=== PATIENT | male | born 1975 | race Caucasian/White ===

== ENCOUNTER 2021-06-17 01:02 | Inpatient (IN) | payer OTHER ==
[2021-06-17] VITALS (15 sets, daily range): BP systolic 118–158; BP diastolic 83–98
[~2021-06-17] VITALS: Ht 195.6 cm; Wt 90.7 kg
[~2021-06-17 01:02] MED LIST: CELEXA 10 MG TA10 M1 PO
[2021-06-17 01:22] LABS: ABSOLUTE BASOPHILS 0.1 thou/uL (0.0-0.2); ABSOLUTE EOSINOPHILS 0.3 thou/uL (0.0-0.7); ABSOLUTE LYMPHOCYTES 2.2 thou/uL (0.8-5.3); ABSOLUTE MONOCYTES 0.7 thou/uL (0.0-1.2); ABSOLUTE NEUTROPHILS 6.6 thou/uL (1.6-8.1); BASOPHILS 1.1 %; EOSINOPHILS 2.9 %; HEMATOCRIT 48.6 % (42.0-52.0); HEMOGLOBIN 16.6 gm/dL (14.0-18.0); LYMPHOCYTES 21.8 %; MCH 31.5 pg (26.0-34.0); MCHC 34.1 g/dL (28.0-37.0); MCV 92.4 fL (80.0-100.0); MONOCYTES 7.3 %; MPV 7.2 fl. (7.2-11.1); NUCLEATED RBCS 0 /100WBC; PLATELET COUNT* 241 thou/uL (150-400); POLYS 66.9 %; RBC 5.26 mil/uL (4.50-6.00); WBC 9.9 thou/uL (4.0-11.0)
[2021-06-17 01:34] LABS: CALCIUM 8.4 mg/dL (8.5-10.1); CREATININE 1.2 mg/dL (0.6-1.3); POTASSIUM 3.7 mmol/L (3.5-5.1)
[2021-06-17 01:36] LABS: PROTIME 10.4 Seconds (9.20-11.50)
[2021-06-17 01:39] LABS: ALBUMIN 3.6 g/dL (3.4-5.0); TOTAL BILIRUBIN 0.6 mg/dL (<0.1-1.0); TOTAL PROTEIN 7.4 g/dL (6.4-8.2)
[2021-06-17] MEDS ORDERED: LIPITOR80 MG PO (01:49)
[2021-06-17] MEDS ORDERED: CHILDREN'S ASPI81 M1 PO (01:49)
[2021-06-17] MEDS ORDERED: CARVEDILOL3.125 MG PO (01:50)
[2021-06-17] MEDS ORDERED: ZETIA10 MG PO (01:50)
[2021-06-17 04:51] LABS: HEMATOCRIT 46.8 % (42.0-52.0); HEMOGLOBIN 16.1 gm/dL (14.0-18.0); MCH 31.8 pg (26.0-34.0); MCHC 34.5 g/dL (28.0-37.0); MCV 92.2 fL (80.0-100.0); MPV 7.1 fl. (7.2-11.1); RBC 5.07 mil/uL (4.50-6.00); RDW-CV 13.9 % (10.5-14.5); WBC 8.8 thou/uL (4.0-11.0)
[2021-06-17 05:19] LABS: ANION GAP 9 mmol/L (7-16); BUN 11 mg/dL (7-18); CALCIUM 8.5 mg/dL (8.5-10.1); CHLORIDE 102 mmol/L (98-107); CHOLESTEROL 234 mg/dL (<200); CO2 25 mmol/L (21-32); GLUCOSE 136 mg/dL (70-99); HDL CHOLESTEROL 34 mg/dL (>40); LDL CHOLESTEROL 127 mg/dL (<100); SODIUM 136 mmol/L (136-145); TC:HDL 6.9 Ratio (Not establshd); TRIGLYCERIDE 368 mg/dL (<150); VLDL 74 mg/dL (<40)
[2021-06-17 05:24] LABS: SERUM ASSESSMENT Moderate Lipemia
--- NOTE | 2021-06-17 10:25 | EKG ---
[place] [address] ELECTROCARDIOGRAM REPORT Name: LEIGH LUKE Room: [address] IN 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 : 1975 Requested By: Brisa Diez Order Number: [id number] MD: Collin Vasquez Measurements Intervals [place] Rate: 92 P: 69 [place]: 171 QRS: -42 QRSD: 84 T: -7 QT: 353 QTc: 437 Interpretive Statements Sinus rhythm Probable left atrial enlargement Inferior infarct, age indeterminate Anterior infarct, acute (LAD) Lateral leads are also involved Baseline wander in lead(s) II,III,aVF No previous ECG available for comparison Electronically Signed On 06-17-2021 10:24:59 CONTENT CHECKER by Collin Vasquez [email or web address] <ELECTRONICALLY SIGNED> By: Collin Vasquez MD, FACC 06/17/21 1024 0058 Collin Vasquez MD, [facility] /EPI
--- NOTE | 2021-06-17 10:26 | EKG ---
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: ELAN : 1975 Requested By: Collin Vasquez Order Number: [id number] Reading MD: Collin Vasquez Measurements Intervals [place] Rate: 85 P: 61 [place]: 173 QRS: -24 QRSD: 98 T: 41 QT: 336 QTc: 400 Interpretive Statements Sinus rhythm Inferior infarct, old Minimal ST elevation, anterior leads Lateral leads are also involved Baseline wander in lead(s) V1 Compared to ECG 06/17/2021 00:58:00 ST segment elevation less prominent Electronically Signed On 06-17-2021 10:26:18 DEBT RECOVERY OFFICER by Collin Vasquez [email or web address] <ELECTRONICALLY SIGNED> By: Collin Vasquez MD, FACC 06/17/21 1026 8 8 Collin Vasquez MD, [facility] /EPI
--- NOTE | 2021-06-17 17:46 | CARD ---
[address] [address] CARDIAC CATH REPORT Name: LEIGH LUKE REHAN Room: [address] IN [facility]#: [id number] Admission: 06/17/21 Attend Phys: Valentino Vaughn MD Discharge: Date of : 73 Report #: [id number] THIS REPORT FOR: cc: FAM - No family physician/PCP FAM - No family physician/PCP Collin Vasquez MD [facility] ~ APPROVED REPORT Study performed: 06/17/2021 01:11:53 Patient Details Patient Status: ED Room #: The patient is a 45 year-old male Event Personnel Collin Vasquez Watch Crystal Molder, Martha Stoll RN RN, Samreen Espinoza INSPECTOR MECHANICAL Scrub, Francisca Omalley RTR Monitor Procedures Performed Art Access - R femoral artery Left Heart Cath w/or w/o Coronaries LAWSON Revasc AMI Total/Sub Single LAD LAWSON Place w/wo Plasty Single RCA Hemostasis w/ Angioseal Indication Abnormal ECG, STEMI (>0 to less than or equal to 6 hours), Chest pain Risk Factors Arterial Hypertension, Hypercholesterolemia, Coronary Artery Disease, Tobacco History () Previous Procedures/Diagnoses Previous PCI Admission/Lab Medications/Medications given during procedure Glycoprotein IllbIlla Inhibitors, Heparin Unfract., Oxygen Nasal cannula 2 l per min, 0.9% Sodium Chloride IV 75 ml per hr, Solumedrol IV 125 mg, Benadryl IV 25 mg, Lidocaine Subcut 12 ml, Heparin IV 3000 units, Aggrastat IV 5.9 ml, Heparin IV 1000 units, 0.9% Sodium Chloride IV 125 ml per hr, Effient PO 60 mg Procedure Narrative The patient was brought emergently to [place] [address] CARDIAC CATH REPORT Name: MARLYARCHANA COREAPhoebe VAN Room: [address] IN [facility]#: [id number] Admission: 06/17/21 Attend Phys: Valentino Vaughn MD Discharge: Date of : 73 Report #: [id number] Laboratory and was prepped and draped in a sterile manner. The right femoral was infiltrated with 2% Lidocaine subcutaneous anesthesia. IV conscious sedation was used throughout procedure with appropriate monitoring and was performed in the presence of a registered nurse who was an independent trained observer other than the physician performing the procedure. A [place] 6 FR sheath was inserted into the right femoral artery. Coronary angiography was performed using coronary diagnostic catheters. The right coronary system was accessed and visualized with a Diagnostic 6 Fr JR 4 catheter. The left coronary system was accessed and visualized with a Diagnostic 6 Fr JL 4 catheter. The left ventricle was accessed and visualized with a Diagnostic 6 Fr Pigtail catheter. Left ventricular/Aortic Valve gradient assessed via catheter pullback. Left ventriculogram was performed in BOO projection. Closure device was deployed with a 6 Fr Angioseal STS 6Fr. The patient tolerated the procedure well and there were no complications associated with the procedure. There was no hematoma. Intraoperative Conscious Sedation Sedation start time: 01:51 Case end Time: 02:38 Fentanyl 50 mcg Versed 4 mg Fluoro Time: 8.5 minutes Dose: DAP 64933 cGycm2 1414 mGy Contrast Type and Amount: Visipaque 170 mL Coronary Angiography The patient's coronary anatomy is right dominant. Diagnostic Cath Left Main 0% stenosis LAD Stent in the mid LAD was distally occluded with thrombus after the second diagonal branch. Circumflex 0% stenosis OM2 large vessel with proximal stent that had 0% restenosis Right Coronary long mid 80% stenosis Left Ventriculography The left ventricular ejection fraction is estimated to be 40-45%. Left ventricular wall motion abnormalities are present. There is no mitral insufficiency. moderate hypokinesis of the distal anteroapical [place] [address] CARDIAC CATH REPORT Name: LEIGH LUKE Room: [address]#: [id number] Admission: 06/17/21 Attend Phys: Valentino Vaughn MD Discharge: Date of : 73 Report #: [id number] The aortic pressure is 89/59 mmHg with a mean of 73 mmHg. The left ventricular pressure is 97/10 mmHg with a mean of mmHg. The left ventricular end diastolic pressure is 12 mmHg. There was no gradient across the aortic valve upon pullback. Pullback from the left ventricle to the aorta revealed no gradient across the aortic valve. PCI Technique Lesion Anticoagulation was achieved with Heparin. bolus of IV aggrastat given Percutaneous coronary intervention was performed on the mid left anterior descending artery segment. The lesion stenosis prior to intervention was 100% with JAMAR 0 flow. A XBLAD 3.5 Guide Catheter was used to engage the left main ostium. A IG: BMW 190cm Interventional Guidewire was used to cross the lesion. BALLOON DILATION A Balloon catheter Trek RX 2.5 X 8 was inserted and inflated up to 10.00atm for 13seconds. Repeat angiography revealed the following post-dilatation results: 40% stenosis. Additional Inflation: 14.00atm for 12seconds. STENT DEPLOYMENT A drug-eluting stent Aldo RX Stent 3.0X18mm was inserted and inflated up to 9.00atm for 14seconds. Repeat angiography revealed the following post-stent deployment results: 0% stenosis. Additional Inflation: 10.00atm for 19seconds. Final angiography reveals 0 % stenosis with JAMAR 3 flow. PCI Technique Lesion 2 Percutaneous Coronary Intervention was performed on the mid right coronary artery. Percutaneous coronary intervention was performed on the mid right coronary artery. The lesion stenosis prior to intervention was 80% with JAMAR 3 flow. A 6F JR 4.0 Guide Catheter was used to engage the right ostium. A IG: BMW 190cm Interventional Guidewire was used to cross the lesion. Balloon Dilation A Balloon catheter Trek RX 2.5 X 8 was inserted and inflated up to 18.00atm for 17seconds. Repeat angiography revealed the following post-dilatation results: 40% stenosis. Stent Deployment A drug-eluting stent Aldo RX Stent 3.5X34mm was inserted and inflated up to 10.00atm for 9seconds. [place] [address] CARDIAC CATH REPORT Name: LEIGH LUKE Room: [address] IN [facility].#: [id number] Admission: 06/17/21 Attend Phys: Valentino Vaughn MD Discharge: Date of : 73 Report #: [id number] following post-stent deployment results: 0% stenosis. Additional Inflation: 10.00atm for 5seconds. Additional Inflation: 12.00atm for 17seconds. 80% stenosis was noted at the distal edge of the stent suggesting dissection. Final angiography reveals 0 % stenosis with JAMAR 2 flow. PCI Technique Lesion 3 Percutaneous Coronary Intervention was performed on the distal right coronary artery. Percutaneous coronary intervention was performed on the distal right coronary artery. The lesion stenosis prior to intervention was 80% with JAMAR 3 flow. A 6F JR 4.0 Guide Catheter was used to engage the right ostium. A IG: BMW 190cm Interventional Guidewire was used to cross the lesion. Stent Deployment A drug-eluting stent Aldo RX Stent 3.0X12mm was inserted and inflated up to 10.00atm for 9seconds. Repeat angiography revealed the following post-stent deployment results: 0% stenosis. Additional Inflation: 16.00atm for 17seconds. Final angiography reveals 0 % stenosis with JAMAR 3 flow. Conclusion 1. Acute occlusion of a stent in the mid LAD. 2. Patent stent in the second marginal branch of the circumflex. 3. 80% stenosis of the mid RCA. 4. Successful placement of a drug eluting stent in the mid LAD, and placement of 2 drug eluting stents in the mid RCA 5. LVEF 40-45% Recommendations Smoking Cessation Medications Administered Prasugrel <ELECTRONICALLY SIGNED> By: Collin Vasquez MD, [facility] 06/17/211745 45 1746Danoé Vasquez MD, FACC /INF
[2021-06-18 00:21] VITALS: BP 122/86
[2021-06-18 04:40] VITALS: BP 129/80
[2021-06-18 08:30] VITALS: BP 119/91
[2021-06-18 12:00] VITALS: BP 111/80
[2021-06-18] MEDS ORDERED: LISINOPRIL5 MG PO (13:15)
[2021-06-18] MEDS ORDERED: EFFIENT10 MG PO (13:15)
[2021-06-18 14:25] VITALS: BP 111/80
--- NOTE | 2021-06-18 15:47 | EKG ---
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 : 1975 Requested By: Collin Vasquez Order Number: [id number] Reading MD: Collin Vasquez Measurements Intervals [place] Rate: 73 P: 61 [place]: 151 QRS: 14 QRSD: 94 T: 112 QT: 426 QTc: 470 Interpretive Statements Sinus rhythm Probable left atrial enlargement Probable inferior infarct, old Anteroseptal infarct, age indeterminate Compared to ECG 06/17/2021 03:49:06 T wave inversion now noted Myocardial infarct finding still present Electronically Signed On 06-18-2021 15:47:27 VARNISH MELTER by Collin Vaqsuez [email or web address] <ELECTRONICALLY SIGNED> By: Collin Vasquez MD, FACC 06/18/21 1547 1457 1457 Collin Vasquez MD, FAC /EPI
[2021-06-18 23:06] LABS: GLYCOHEMOGLOBIN (HGB A1C) 6.2 % (4.8-5.6)
--- NOTE | 2021-06-20 14:10 | CON ---
[address] [address] CONSULTATION Name: LEIGH LUKE REHAN Room: [address] IN [facility].#: [id number] Admission: 06/17/21 Attend Phys: Valentino Vaughn MD Discharge: 06/18/21 Date of : 73 Report #: [id number] THIS REPORT FOR: cc: FAM - No family physician/PCP FAM - No family physician/PCP Collin Vasquez MD [facility] ~ DATE OF CONSULTATION: 06/17/2021 HISTORY OF PRESENT ILLNESS: The patient is a 45-year-old single white male who I was asked to see in the Emergency Room today after he complained of chest pain. Unfortunately, no old records available. There are no family members available. The patient states, however, that in 2015, he was short of breath. He was admitted to [facility] and had a cardiac catheterization from the right femoral artery. Clerk Of Court decided that he needed to have a stent. Therefore, he was taken back to the cardiac catheterization lab the next day and had a stent placed in his LAD from the left femoral artery. He was discharged and about a year later was again short of breath and he was admitted to . He had a heart catheterization. Apparently, the stent in the LAD looked widely patent. He had a stent placed in the circumflex artery. He does note that about 3 months ago, he was again admitted to [facility] with shortness of breath and had another cardiac catheterization from the radial artery and was told his stents were widely patent. Recently, however, the patient has had intermittent chest pain, shortness of breath. It tends to come and go. Last night, he awakened about 2:00 in the morning with chest pain, became short of breath, diaphoretic. It lasted about an hour. He took nitroglycerin that seemed to help. He finally called the paramedics and brought here to [place] by ambulance and arrived here about 3:00 in the morning and continued to have the chest pain. I was asked to see him on emergent basis. He denies any recent dyspnea on exertion, fever or bleeding. The pain was not related to food. He has had no palpitation or syncope. PAST MEDICAL HISTORY: He has history of hypertension, hyperlipidemia. He has had lung surgery in the past at [facility] for benign disease. MEDICATIONS: Include aspirin, Lipitor, lisinopril, carvedilol, although he notes that he does not take his meds on a regular basis and not every day. ALLERGIES: HE HAS PREVIOUS INTOLERANCE TO PENICILLIN AND IV CONTRAST. FAMILY HISTORY: His father had bypass surgery. SOCIAL HISTORY: He is , lives by himself in [place]. 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 Smokes 2 packs of cigarettes a day. He has a history of alcohol abuse. Used to drink heavily every day. Now drinks just a few drinks every day. No [place] [address] CONSULTATION Name: LEIGH LUKE REHAN Room: [address]#: [id number] Admission: 06/17/21 Attend Phys: Valentino Vaughn MD Discharge: 06/18/21 Date of : 73 Report #: [id number] REVIEW OF SYSTEMS: No history of stroke or asthma, although he does have a chronic cough. No history of liver disease, kidney disease, cancer or chronic skin condition. He had a history of depression in the past and was on Prozac in the past. PHYSICAL EXAMINATION: GENERAL: Revealed a middle-aged male, appeared in moderate distress secondary to the chest pain. VITAL SIGNS: He had a blood pressure of 140/90, pulse is 90. He was afebrile. HEENT: He was anicteric. Conjunctivae pink. Mucous membranes moist. NECK: Veins not appear distended. No carotid bruits. Neck is supple. CHEST: Clear to auscultation. CARDIAC: Regular rate and rhythm without murmur. ABDOMEN: Soft. EXTREMITIES: Had no edema. Posterior tibial pulse 2+ bilaterally. SKIN: Cool and dry. NEUROLOGIC: Nonfocal. IMAGING DATA: His ECG on admission showed a sinus rhythm. There was up to [address] segment elevation in lead V2, V3, V4, reciprocal ST segment depression in lead III and aVF. There is also ST segment elevation in lead I and aVL. He had a chest x-ray in the Emergency Room last night that showed normal heart size, clear lung rosas. LABORATORY DATA: Sodium 136, potassium 4.0, creatinine 1.0, glucose 130. His high sensitivity troponin was 37. Cholesterol 234, triglycerides 368, HDL 34, LDL 127. His white blood cell count 8.8, hemoglobin 16.1. COVID antigen stat test was negative. IMPRESSION AND RECOMMENDATIONS: 1. Coronary artery disease. Previous stents. The patient does not take aspirin every day. 2. Acute anterior ST-elevation myocardial infarction. Recommend urgent cardiac catheterization. 3. Hypertension. The patient is noncompliant on his angiotensin-converting enzyme inhibitor, beta-tessy. 4. Hyperlipidemia. The patient is noncompliant with his statin drug. Because of elevated triglycerides, I would consider Vascepa. 5. Tobacco abuse. 6. History of excessive alcohol intake. 7. Chronic bronchitis. 8. History of depression. [address] [address] CONSULTATION Name: LEIGH LUKE Room: [address] IN .R.#: [id number] Admission: 06/17/21 Attend Phys: Valentino Vaughn MD Discharge: 06/18/21 Date of : 73 Report #: [id number] Critical care time was from 1:45 a.m. until 3:00 a.m. for a total of 1 hour and 15 minutes. <ELECTRONICALLY SIGNED> By: Collin Vasquez MD, FACC 06/20/21 1410 0738 [id number] Vasquez MD, FACC /nt
== END 2021-06-18 16:20 | disposition home or self-care (01) | DRG 246 ==
LOC: M.ERS 01:02 → M.CL 01:29 → M.TBA-CV 01:29 → M.2W 03:57
PROVIDERS: Emergency Medicine; Internal Medicine Cardiovascular Disease; ADMIT Internal Medicine; ATTEND Internal Medicine
PROC: B215YZZ Fluoroscopy of Left Heart using Other Contrast (ICD-10-PCS; principal; 2021-06-17)
PROC: 4A023N7 Measurement of Cardiac Sampling and Pressure, Left Heart, Percutaneous Approach (ICD-10-PCS; principal; 2021-06-17)
PROC: 3E03317 Introduction of Other Thrombolytic into Peripheral Vein, Percutaneous Approach (ICD-10-PCS; principal; 2021-06-17)
PROC: B211YZZ Fluoroscopy of Multiple Coronary Arteries using Other Contrast (ICD-10-PCS; principal; 2021-06-17)
PROC: 027136Z Dilation of Coronary Artery, Two Arteries with Three Drug-eluting Intraluminal Devices, Percutaneous Approach (ICD-10-PCS; principal; 2021-06-17)
DX: T82.867A Thrombosis due to cardiac prosthetic devices, implants and grafts, initial encounter (principal); I21.09 ST elevation (STEMI) myocardial infarction involving other coronary artery of anterior wall; I50.21 Acute systolic (congestive) heart failure; E78.00 Pure hypercholesterolemia, unspecified; E78.5 Hyperlipidemia, unspecified; F17.210 Nicotine dependence, cigarettes, uncomplicated; I11.0 Hypertensive heart disease with heart failure; J42 Unspecified chronic bronchitis; F32.A Depression, unspecified; Y83.8 Other surgical procedures as the cause of abnormal reaction of the patient, or of later complication, without mention of misadventure at the time of the procedure; I25.10 Atherosclerotic heart disease of native coronary artery without angina pectoris; Z79.899 Other long term (current) drug therapy; Z79.82 Long term (current) use of aspirin; Z88.0 Allergy status to penicillin; Z91.041 Radiographic dye allergy status; Y92.89 Other specified places as the place of occurrence of the external cause; Z82.49 Family history of ischemic heart disease and other diseases of the circulatory system; Z95.5 Presence of coronary angioplasty implant and graft; Z71.6 Tobacco abuse counseling; Z91.14 Patient's other noncompliance with medication regimen